=== PATIENT | male | born 1955 | race Caucasian/White ===

== ENCOUNTER 2017-02-18 14:32 | Emergency (ER) | payer MEDICAID ==
[2017-02-18 14:53] VITALS: BP 144/83
--- NOTE | 2017-02-18 16:57 | EDM.PDOC ---
ED HPI GENERAL MEDICAL PROBLEM - General Chief Complaint: Skin Complaint Stated Complaint: hand brouse [phone] Time Seen by Provider: 02/18/17 16:40 Source of Information: Reports: Patient History Limitations: Reports: No Limitations - History of Present Illness INITIAL COMMENTS - FREE TEXT/NARRATIVE: Pt states that he has had a lesion on his right forearm for the psat few days and today he squeezed it and purulent drainage come out. Has a small scab to left dejesus as well. denies other injuries or problems. Afebrile. Spoke with sister who states that wound has changed significantly in appearance since the beginning of the week. Onset Date: 02/13/17 Duration: Getting Worse Location: Reports: Upper Extremity, Right, Lower Extremity, Left Quality: Reports: Ache Improves with: Reports: None Worsens with: Reports: None Associated Symptoms: Reports: Malaise Treatments COOK SHIP: Reports: Other Medication(s) (Bactroban) - Related Data Allergies Allergy/AdvReac Type Severity Reaction Status Date / Time No Known Allergies Allergy Verified 02/18/17 15:03 Home Meds: Home Meds . [Unable to Verify Home Med List] 02/18/17 [History] Past Medical History HEENT History: Reports: None Cardiovascular History: Reports: Hypertension Respiratory History: Reports: None Gastrointestinal History: Reports: None Psychiatric History: Reports: Depression Endocrine/Metabolic History: Reports: Diabetes, Type II - Infectious Disease History Other Infectious Disease History: staph infection - Past Surgical History HEENT Surgical History: Reports: Tonsillectomy Male Surgical History: Reports: TURP-Transurethral Resection of Prostate Social & Family History - Tobacco Use Smoking Status *Q: Never Smoker - Caffeine Use Caffeine Use: Reports: Soda - Recreational Drug Use Recreational Drug Use: No ED ROS GENERAL - Review of Systems Review Of Systems: See Below Skin: Reports: Erythema, Wound ED EXAM, SKIN/RASH Exam: See Below Exam Limited By: No Limitations General Appearance: Alert, WD/WN, No Apparent Distress Respiratory/Chest: No Respiratory Distress, Lungs Clear, Normal Breath Sounds, No Accessory Muscle Use, Chest Non-Tender Cardiovascular: Normal Peripheral Pulses, Regular Rate, Rhythm, No Edema, No Gallop, No JVD, No Murmur, No Rub Extremities: Normal Inspection, Normal Range of Motion, Non-Tender, No Pedal Edema, Normal Capillary Refill Skin: Warm, Dry, Intact, No Rash, Erythema, Increased Warmth, Other (abscess to R forearm, non flucuent ) Location, Skin: Upper Extremity, Right Characteristics: Erythematous Associated features: Warmth, Tenderness, Induration, Inflammation, Weeping Lymphatic: No Adenopathy Course - Vital Signs Last Recorded V/S: Last Vital Signs Temp 97.7 F 02/18/17 14:52 Pulse 67 02/18/17 14:52 Resp 18 02/18/17 14:52 BP 144/83 H 02/18/17 14:52 Pulse Ox 98 02/18/17 14:52 - Orders/Labs/Meds Labs: Laboratory Tests 02/18/17 Range/Units 16:40 WBC 6.8 (5.0-10.0) 10^3/uL RBC 4.05 L (4.6-6.2) 10^6/uL Hgb 12.4 L (14.0-18.0) g/dL Hct 35.8 L (40.0-54.0) % MCV 88.4 (80-100) fL MCH 30.6 (27.0-34.0) pg MCHC 34.6 (33.0-35.0) g/dL Plt Count 193 (150-450) 10^3/uL Neut % (Auto) 63.6 (42.2-75.2) % Lymph % (Auto) 22.1 (20.5-50.1) % [place] % (Auto) 8.8 H (2-8) % Eos % (Auto) 5.1 H (1.0-3.0) % Baso % (Auto) 0.4 (0.0-1.0) % Departure - Departure Time of Disposition: 16:58 Disposition: Home, Self-Care 01 Condition: Good Clinical Impression: Abscess - Discharge Information Instructions: Abscess Forms: ED Department Discharge Additional Instructions: Take the antibiotic for a week. You may continue to use Bactroban during this time. Keep wound clean and dry. Follow up in clinic in 1 week for re-evalution. Return for any worsening symptoms.
== END 2017-02-18 17:09 | disposition home or self-care (01) ==
LOC: DL.ED 14:32
DX: L02.413 Cutaneous abscess of right upper limb (principal); I10 Essential (primary) hypertension; F32.9 Major depressive disorder, single episode, unspecified; E11.9 Type 2 diabetes mellitus without complications; Z98.890 Other specified postprocedural states
CPT/HCPCS: 36415; 85025; 99283; 99284